=== PATIENT | female | born 1975 | race Caucasian/White ===

== ENCOUNTER 2017-05-23 05:51 | Inpatient (IN) | payer OTHER ==
[~2017-05-23] VITALS: Ht 162.6 cm; Wt 74.9 kg
[2017-05-23 06:43] LABS: BASOPHIL % 0.3 % (0-2); PLATELET COUNT 247 x10^3mcL (130-400); RED CELL DISTRIBUTION WIDTH 13.1 % (11.5-14.5)
[2017-05-23 06:51] LABS: CALCIUM 8.4 mg/dL (8.5-10.1); CARBON DIOXIDE 26.2 mmol/L (21-32); CHLORIDE SERUM 107 mmol/L (98-107); CREATININE SERUM 0.7 mg/dL (0.6-1.0); GFR1 > 60 mL/min; GLUCOSE SERUM 116 mg/dL (74-106); POTASSIUM SERUM 3.5 mmol/L (3.5-5.1); SODIUM SERUM 141 mmol/L (136-145)
[2017-05-23 07:16] LABS: microscopic required? NO
[2017-05-23 07:48] LABS: T4(THYROXINE) 4.7 ug/dL (4.7-13.3)
[2017-05-23 09:00] LABS: PHOSPHOROUS 2.2 mg/dL (2.5-4.9)
[2017-05-23 09:03] LABS: CHOLESTEROL/HDL RATIO 2.8
[2017-05-23 09:26] VITALS: BP 92/62
[2017-05-23 10:14] LABS: urine erythrocyte NEGATIVE (NEGATIVE)
[2017-05-23 10:19] VITALS: BP 92/62
[2017-05-23 12:44] VITALS: BP 95/57
[2017-05-23 17:05] VITALS: BP 99/61
[2017-05-23 21:44] VITALS: BP 93/61
[2017-05-24 06:53] LABS: BASOPHIL % 0.5 % (0-2); PLATELET COUNT 255 x10^3mcL (130-400); RED CELL DISTRIBUTION WIDTH 13.5 % (11.5-14.5)
[2017-05-24 07:24] LABS: CALCIUM 8.3 mg/dL (8.5-10.1); CHLORIDE SERUM 103 mmol/L (98-107); CREATININE SERUM 0.6 mg/dL (0.6-1.0); GFR1 > 60 mL/min; GLUCOSE SERUM 103 mg/dL (74-106); POTASSIUM SERUM 4.2 mmol/L (3.5-5.1); SODIUM SERUM 138 mmol/L (136-145)
[2017-05-24 10:22] VITALS: BP 109/68
[2017-05-24] MEDS ORDERED: LEVOTHYROXIN0.025 M2 PO (12:31)
== END 2017-05-24 13:22 | disposition home or self-care (01) | DRG 48 ==
LOC: ED 05:51 → DU 07:54
PROVIDERS: Emergency Medicine; ADMIT Family Medicine
DX: G90.9 Disorder of the autonomic nervous system, unspecified (principal); E83.39 Other disorders of phosphorus metabolism; I48.0 Paroxysmal atrial fibrillation; Z98.51 Tubal ligation status; E02 Subclinical iodine-deficiency hypothyroidism; E78.5 Hyperlipidemia, unspecified
CPT/HCPCS: 83880; J3010; J3475; J7030; Q0092